=== PATIENT | male | born 1950 | race Two or more races ===

== ENCOUNTER 2017-09-23 21:21 | Inpatient (IN) | payer MEDICARE, MEDICAID ==
[~2017-09-23] VITALS: Ht 154.9 cm; Wt 79.8 kg
[2017-09-23 22:50] VITALS: BP 144/81
--- NOTE | 2017-09-23 22:50 | NUR ---
RN NOTES RECEIVED PATIENT DIRECT ADMIT FROM ADRIAN FOR DX ISCHEMIC STROKE. DR. RON AT BEDSIDE. PATIENT AO X 3, ABLE TO MAKE NEEDS KNOWN. NO DEFICIT NOTED POST NEUROCHECK. NO ACUTE DISTRESS NOTED. DENIES ANY PAIN AT THIS TIME. SKIN INTACT. IV SITE PATENT, INTACTL FLUSHED. TELE READING SR HR 69. SAFETY REMINDERS GIVEN. STROKE EDUCATION AND SMOKE CESSATION EDUCATION GIVEN; VERBALIZED UNDERSTANDING. ON LOW BED WITH BILATERAL UPPER SIDE RAILS UP. CALL BUTTON WITHIN EASY REACH. WILL CONTINUE TO MONITOR.
[2017-09-23] MEDS ORDERED: ACETAMINOPHEN 325 MG TABLET PO PRN (23:30)
[2017-09-24 00:33] LABS: BASOPHILS % (AUTO) 0.2 % (0.0-2.0); EOSINOPHILS # (AUTO) 0.2 /CMM (0.0-0.7); EOSINOPHILS % (AUTO) 2.5 % (0.0-6.0); HEMATOCRIT 44 % (39-51); HEMOGLOBIN 14.9 g/dL (13.5-17.5); LYMPHOCYTES # (AUTO) 1.7 /CMM (0.8-4.8); LYMPHOCYTES % (AUTO) 23.9 % (20.0-44.0); MEAN CORPUSCULAR HEMOGLOBIN 30 PG (26.0-33.0); MEAN CORPUSCULAR HGB CONC 34 g/dl (31.0-36.0); MEAN CORPUSCULAR VOLUME 89 fL (80-96); MONOCYTES # (AUTO) 0.6 /CMM (0.1-1.30); MONOCYTES % (AUTO) 8.9 % (2.0-12.0); NEUTROPHILS # (AUTO) 4.5 /CMM (1.8-8.9); NEUTROPHILS % (AUTO) 64.5 % (43.0-81.0); PLATELET COUNT (AUTO) 262 /CMM (150-450); RDW COEFFICIENT OF VARIATION 13.6 (11.5-15.0); RED BLOOD CELL COUNT(AUTO) 4.93 MIL/uL (4.5-6.0); WHITE BLOOD COUNT (AUTO) 6.9 K/uL (4.3-11.0)
[2017-09-24 00:43] LABS: CALCIUM, SERUM 8.8 mg/dL (8.5-10.1); CREATININE 0.9 mg/dL (0.6-1.3); POTASSIUM 3.6 mmol/L (3.5-5.1)
[2017-09-24 00:45] LABS: INR 1.01 (0.87-1.13); PROTHROMBIN TIME 10.5 SECS (9.5-12.7)
[2017-09-24 00:55] LABS: THYROID STIMULATING HORMONE 7.523 uIU/mL (0.358-3.74)
[2017-09-24 01:00] LABS: ALBUMIN 3.5 g/dL (3.4-5.0); BILIRUBIN,TOTAL 0.5 mg/dL (0.2-1.0); MAGNESIUM 2.1 mg/dL (1.8-2.4); TOTAL PROTEIN, SERUM 7.4 g/dL (6.4-8.2)
[2017-09-24 04:00] VITALS: BP 133/78
--- NOTE | 2017-09-24 06:36 | NUR ---
RN NOTES PATIENT ASLEEP, EASILY AROUSABLE. RESPIRATION EVEN. DENIES ANY PAIN AT THIS TIME. NEUROCHECKS DONE ORDERED. SAFETY PRECAUTIONS AND COMFORT MEASURES IN PLACE. WILL GIVE REPORT TO DAY SHIFT FOR CONTINUITY OF CARE.
[2017-09-24 07:17] LABS: INR 0.99 (0.87-1.13); PROTHROMBIN TIME 10.3 SECS (9.5-12.7)
[2017-09-24 07:19] LABS: CALCIUM, SERUM 8.9 mg/dL (8.5-10.1); CREATININE 0.8 mg/dL (0.6-1.3)
[2017-09-24 07:22] LABS: BASOPHILS % (AUTO) 0.3 % (0.0-2.0); EOSINOPHILS # (AUTO) 0.2 /CMM (0.0-0.7); EOSINOPHILS % (AUTO) 2.6 % (0.0-6.0); HEMATOCRIT 43 % (39-51); HEMOGLOBIN 15.1 g/dL (13.5-17.5); LYMPHOCYTES # (AUTO) 1.6 /CMM (0.8-4.8); LYMPHOCYTES % (AUTO) 19.5 % (20.0-44.0); MEAN CORPUSCULAR HEMOGLOBIN 31 PG (26.0-33.0); MEAN CORPUSCULAR HGB CONC 35 g/dl (31.0-36.0); MEAN CORPUSCULAR VOLUME 89 fL (80-96); MONOCYTES # (AUTO) 0.6 /CMM (0.1-1.30); MONOCYTES % (AUTO) 7.6 % (2.0-12.0); NEUTROPHILS # (AUTO) 5.6 /CMM (1.8-8.9); PLATELET COUNT (AUTO) 259 /CMM (150-450); RDW COEFFICIENT OF VARIATION 13.7 (11.5-15.0); RED BLOOD CELL COUNT(AUTO) 4.86 MIL/uL (4.5-6.0); WHITE BLOOD COUNT (AUTO) 8.1 K/uL (4.3-11.0)
[2017-09-24 08:00] VITALS: BP 125/74
--- NOTE | 2017-09-24 08:00 | NUR ---
tele folding rules printing machine operator: initial assessment received pt in bed awake, a/ox4; ambulatory. no deficit noted. speech clear and coherent. lao speaking with little stateless. pt for neuro consult today and pt updated plan of care. instructed to call for assistance. will continue to monitor.
[2017-09-24] MEDS: PANTOPRAZOLE 40 MG TABLET.DR PO SCH (08:50)
[2017-09-24] MEDS ORDERED: MECL-102 PO (10:58)
[2017-09-24] MEDS ORDERED: PRED20TA PO (10:58)
[2017-09-24] MEDS ORDERED: TAMS0.4C34 PO (10:58)
[2017-09-24] MEDS ORDERED: ASPI-1152 PO (10:58)
[2017-09-24] MEDS ORDERED: MONT10TA22 PO (10:58)
--- NOTE | 2017-09-24 12:00 | NUR ---
tele imaging manager: speech therapy eval speech therapist in room and evaluating pt at this time. pt swallows okay and speech clear per findings from eval.
--- NOTE | 2017-09-24 12:15 | NUR ---
tele scrubbing machine operator: neuro consult family at bedside. seen and examined by dr. davis and teaching provided to take aspirin on regular basis, cholesterol has to controlled, and no smoking. pt and family verbalized understanding. dr. davis will put the orders as stated.
[2017-09-24 16:00] VITALS: BP 124/89
--- NOTE | 2017-09-24 16:00 | NUR ---
m/s chief solution architect: notes dr. jane here and informed md re: med recon hasn't been done and also ask md if pt needs lovenox with no new order at this time.
[2017-09-24] MEDS ORDERED: IV NS 0.9% 250 ML IV ONE (16:34)
[2017-09-24] MEDS ORDERED: CT SWABBABLE VALVE TRANS SET 1 EA INFUS.SET MC ONE (16:34)
[2017-09-24] MEDS ORDERED: IOHEXOL-350 100 ML VIAL IV ONE (16:34)
[2017-09-24] MEDS: ASPIRIN EC 325 MG TABLET.DR PO SCH (17:28)
--- NOTE | 2017-09-24 18:39 | NUR ---
m/s building drafting officer: notes resting comfortable in bed with no distress noted. needs attended. family remains at bedside. will continue to monitor.
--- NOTE | 2017-09-24 18:45 | NUR ---
m/s occasional caregiver: notes dr. jane notified re: still need medication reconciled and if pt need antithrombotic med with order to lovenox 30mg sq daily and will reconcile the rest per md. order carried out and acknowledged
[2017-09-24 20:00] VITALS: BP_SYST 136; BP_SYST 145; BP_DIAS 77; BP_DIAS 79
[2017-09-24] MEDS ORDERED: ENOXAPARIN SODIUM 30 MG/0.3 ML DISP.SYRIN SQ SCH (20:00)
[2017-09-24 22:00] VITALS: BP 136/79
[2017-09-24] MEDS ORDERED: ATORVASTATIN 40 MG TABLET PO SCH (22:00)
[2017-09-24] MEDS ORDERED: SIMVASTATIN 40 MG TABLET PO SCH (22:00)
--- NOTE | 2017-09-24 23:27 | NUR ---
ms rn note Received patient awake alert and oriented in bed. No pain or distress noted. Patient states that he is having mild tingling in both his hands. MD is aware. No deficits noted. Neuro check done. iv site intact with no redness noted. Bed locked and in lowest position. Side rails up, call light within reach. Will continue to monitor.
--- NOTE | 2017-09-25 06:37 | NUR ---
MS RN NOTE PATIENT STABLE. SLEPT WELL THROUGH THE NIGHT. ALL NEEDS MET AND ATTENDED TO. WILL ENDORSE TO DAY SHIFT FOR SH[facility].
[2017-09-25] MEDS: PANTOPRAZOLE 40 MG TABLET.DR PO SCH (07:45)
[2017-09-25 08:00] VITALS: BP 127/82
--- NOTE | 2017-09-25 08:00 | NUR ---
M/S RN - AM Assessment Pt awake, A/O x 4, denies pain, no c/o left sided weakness, not in any form of distress. Pt independent with ADLs, ambulatory with steady gait. All needs attended and met. Safety measures in place. Call light in reach at all times. Will continue with current plan of care.
[2017-09-25 08:04] LABS: CALCIUM, SERUM 9.6 mg/dL (8.5-10.1); MAGNESIUM 2.1 mg/dL (1.8-2.4)
[2017-09-25 08:16] LABS: BASOPHILS % (AUTO) 0.3 % (0.0-2.0); EOSINOPHILS # (AUTO) 0.2 /CMM (0.0-0.7); EOSINOPHILS % (AUTO) 2.7 % (0.0-6.0); HEMATOCRIT 44 % (39-51); HEMOGLOBIN 15.1 g/dL (13.5-17.5); LYMPHOCYTES # (AUTO) 1.6 /CMM (0.8-4.8); LYMPHOCYTES % (AUTO) 18.8 % (20.0-44.0); MEAN CORPUSCULAR HEMOGLOBIN 31 PG (26.0-33.0); MEAN CORPUSCULAR HGB CONC 35 g/dl (31.0-36.0); MEAN CORPUSCULAR VOLUME 89 fL (80-96); MONOCYTES # (AUTO) 0.7 /CMM (0.1-1.30); MONOCYTES % (AUTO) 8.3 % (2.0-12.0); NEUTROPHILS # (AUTO) 5.9 /CMM (1.8-8.9); NEUTROPHILS % (AUTO) 69.9 % (43.0-81.0); PLATELET COUNT (AUTO) 260 /CMM (150-450); RDW COEFFICIENT OF VARIATION 13.5 (11.5-15.0); RED BLOOD CELL COUNT(AUTO) 4.94 MIL/uL (4.5-6.0); WHITE BLOOD COUNT (AUTO) 8.5 K/uL (4.3-11.0)
[2017-09-25] MEDS: ASPIRIN EC 325 MG TABLET.DR PO SCH (08:16)
[2017-09-25] MEDS ORDERED: MECL-102 PO (14:51)
[2017-09-25] MEDS ORDERED: ATOR40TA PO (14:51)
--- NOTE | 2017-09-25 16:41 | NUR ---
M/S RN - Discharge Pt feeling better, discharged to home in stable condition. Reviewed discharge instructions with pt and both verbalized full understanding of all teachings including medication management and f/u appt made with [facility] on 10/01/17 at 12:15pm. Written prescription given to pt. All belongings with pt and he denies any missing items. VSS, denies pain, no c/o left sided weakness, tolerating regular diet well, no apparent distress seen. Heplock removed on the RAC with catheter tip intact, no redness and no swelling noted at the site. Skin is intact, refused photo to be taken. Discharge papers signed and copy was given per protocol. Accompanied to the lobby and transported by private car.
== END 2017-09-25 17:00 | disposition home or self-care (01) | DRG 66 ==
LOC: TELE 22:46 → MED 09-24 13:39 → MEDSG2 09-25 09:00
DX: I63.9 Cerebral infarction, unspecified (principal); E03.9 Hypothyroidism, unspecified; F17.210 Nicotine dependence, cigarettes, uncomplicated; E78.5 Hyperlipidemia, unspecified; I10 Essential (primary) hypertension; I70.90 Unspecified atherosclerosis
CPT/HCPCS: 36415; 70496-TC; 70498-TC; 80048-TC; 80053-TC; 80061-TC; 83735-TC; 83880; 84443-TC; 84484-TC; 85025-TC; 85652-TC; 85730-TC; 87081-TC; 92611-TC; 93307-TC; J1650; J7050; Q9967; Z7610

== ENCOUNTER 2017-10-01 12:16 | Outpatient (CLI) | payer MEDICARE, MEDICAID ==
[~2017-10-01 12:16] MED LIST: ASPI-1152 PO; ATOR40TA PO; MECL-102 PO; MONT10TA22 PO; PRED20TA PO; TAMS0.4C34 PO
[2017-10-01 12:25] VITALS: BP 131/73
== END 2017-10-01 23:59 | disposition home or self-care (01) ==
LOC: MSC 12:16
PROVIDERS: ATTEND Internal Medicine
DX: R42 Dizziness and giddiness (principal); R53.1 Weakness; F17.200 Nicotine dependence, unspecified, uncomplicated; E66.9 Obesity, unspecified; E78.5 Hyperlipidemia, unspecified; I10 Essential (primary) hypertension; N40.0 Benign prostatic hyperplasia without lower urinary tract symptoms